=== PATIENT | female | born 1965 | race Asian ===

== ENCOUNTER 2022-04-01 11:07 | Outpatient (CLI) | payer BC, SELFPAY ==
--- NOTE | 2022-04-01 11:30 | CRLHL7_ITS ---
For Patients: As a result of the Cures Act, medical imaging exams and procedure reports are released immediately into your electronic medical record. You may view this report before your referring provider. If you have questions, please contact your health care provider. BILATERAL DIGITAL SCREENING MAMMOGRAM WITH COMPUTER-AIDED DETECTION CLINICAL HISTORY: Routine screening exam. COMPARISON: 04/27/21, 02/12/2020, 12/04/2018, 03/23/2018. TECHNIQUE: Digital mammogram in CC and MLO projections including computer-aided detection (CAD). BREAST COMPOSITION: The breasts are heterogeneously dense, which may obscure small masses. FINDINGS: RIGHT Breast: No suspicious findings. LEFT Breast: Focal asymmetric density retroareolar plane 3 cm from the nipple. IMPRESSION: LEFT breast asymmetry/mass. RECOMMENDATIONS: Additional mammographic views of the LEFT breast including 3D CC/MLO. LEFT breast ultrasound may also be required. The [facility] will contact the patient for follow-up. BI-RADS Category 0: Incomplete: Need Additional Imaging Evaluation and/or Prior Mammograms for Comparison A lay language report of this examination will be provided to the patient. Dictated by Yuri Mar MD @ 04/01/2022 12:27:23 PM moriah/Dictated by: Yuri Mar MD @ 04/01/2022 12:27:00 PM (Electronically Signed)
== END 2022-04-01 11:08 | disposition home or self-care (01) ==
LOC: MAMMO 11:09
DX: Z12.31 Encounter for screening mammogram for malignant neoplasm of breast (principal); N63.20 Unspecified lump in the left breast, unspecified quadrant
CPT/HCPCS: 77063; 77067

== ENCOUNTER 2022-04-15 07:40 | Outpatient (CLI) | payer BC, SELFPAY ==
--- NOTE | 2022-04-15 07:45 | CRLHL7_ITS ---
For Patients: As a result of the Cures Act, medical imaging exams and procedure reports are released immediately into your electronic medical record. You may view this report before your referring provider. If you have questions, please contact your health care provider. LEFT DIAGNOSTIC MAMMOGRAM WITH COMPUTER-AIDED DETECTION AND TOMOSYNTHESIS CLINICAL HISTORY: Possible asymmetry. TECHNIQUE: CC and MLO views were obtained. These mammographic images have been obtained using full-field digital technique. These mammographic images were interpreted with the benefit of computer-aided detection. Breast Tomosynthesis was used in this interpretation. COMPARISON FILM: 04/01/2022, 04/27/2021. BREAST COMPOSITION: There are scattered areas of fibroglandular density FINDINGS: Spot compression views demonstrate dissipation of the asymmetry. IMPRESSION: Asymmetry on the screening mammogram is felt to represent overlap of normal glandular tissue. ASSESSMENT: BI-RADS Category 2: Benign RECOMMENDATION: Recommend return to yearly screening mammography. A lay language report of this examination will be provided to the patient. Elma Asif M.D. Diagnostic/Breast Radiologist [email or web address] Transcribed: 9:56 a.m. DW/Dictated by: Elma Asif MD @ 04/15/2022 8:49:00 AM (Electronically Signed)
== END 2022-04-15 07:41 | disposition home or self-care (01) ==
LOC: MAMMO 07:43
PROVIDERS: PCP Family Medicine; Visit Provider Family Medicine
DX: N63.20 Unspecified lump in the left breast, unspecified quadrant (principal); R92.8 Other abnormal and inconclusive findings on diagnostic imaging of breast
CPT/HCPCS: 77065; G0279

== ENCOUNTER 2023-12-15 10:13 | Outpatient (CLI) | payer BC, SELFPAY ==
--- NOTE | 2023-12-15 10:15 | CRLHL7_ITS ---
For Patients: As a result of the Century Cures Act, medical imaging exams and procedure reports are released immediately into your electronic medical record. You may view this report before your referring provider. If you have questions, please contact your health care provider. BILATERAL SCREENING MAMMOGRAM WITH COMPUTER-AIDED DETECTION AND TOMOSYNTHESIS TECHNIQUE: CC and MLO views were obtained. These mammographic images have been obtained using full-field digital technique. These mammographic images were interpreted with the benefit of computer-aided detection. Breast Tomosynthesis was used in this interpretation. COMPARISON FILM: 04/01/22, 04/27/21, 02/11/19. FINDINGS: The breasts are heterogeneously dense, which may obscure small masses IMPRESSION: There is no radiographic evidence for malignancy. ASSESSMENT: BI-RADS Category 1: Negative RECOMMENDATION: Routine screening mammogram in 1 year. A lay language report of this examination will be provided to the patient. Yuri Mar M.D. Diagnostic Radiologist [email or web address]/[email or web address] Transcribed: 2:41 p.mMichelle major/Dictated by: Yuri Mar MD @ 12/15/2023 1:39:00 PM (Electronically Signed)
== END 2023-12-15 10:14 | disposition home or self-care (01) ==
PROVIDERS: PCP Family Medicine; Visit Provider Family Medicine
DX: Z12.31 Encounter for screening mammogram for malignant neoplasm of breast (principal); R92.2 Inconclusive mammogram
CPT/HCPCS: 77063; 77067